=== PATIENT | female | born 1990 | race Hispanic/Latino ===

== ENCOUNTER 2016-08-19 07:48 | Emergency (ER) | payer SELFPAY ==
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
== END 2016-08-19 09:01 | disposition home or self-care (01) ==
LOC: ER 07:48
DX: S51.812A Laceration without foreign body of left forearm, initial encounter (principal); W25.XXXA Contact with sharp glass, initial encounter; Y92.019 Unspecified place in single-family (private) house as the place of occurrence of the external cause; F17.210 Nicotine dependence, cigarettes, uncomplicated
CPT/HCPCS: 12032; 99283; A0425; A0429